=== PATIENT | female | born 1945 | race Caucasian/White ===

== ENCOUNTER 2025-03-23 09:32 | Outpatient (CLI) | payer MEDICARE, MEDICAID, SELFPAY ==
[2025-03-23 10:29] LABS: Anion Gap 10 mmol/L (4-12); Blood Urea Nitrogen 36 mg/dL (7-17); Calcium 9.5 mg/dL (8.4-10.2); Carbon Dioxide 22 mmol/L (22-30); Chloride 104 mmol/L (98-107); Estimated Glomerular Filt Rate 30; Glucose 92 mg/dL (65-110); Magnesium 1.7 mg/dL (1.6-2.3); Sodium 136 mmol/L (137-145)
[2025-03-23 10:38] LABS: Potassium 5.0 mmol/L (3.4-5.0)
[2025-03-23 10:44] LABS: Free T4 Free Thyroxine 1.77 ng/dL (0.78-2.19)
--- OUTSIDE RECORDS SUMMARY | 2025-03-23 11:07 | XMS_ITS | Clinical Summary ---
Author Organization [facility] A Address [address] [place] [address] Care Team Providers Care Instrumental Musician Name Role Phone Gilmer Wise MD Primary Care Provider [phone] Allergies Active Allergy Reactions Criticality Noted Date Comments Dexbrompheniramine-P seudoephed Other (See comments) Low 04/20/2015 Ear problems Atorvastatin Other (See comments) Low 02/21/2022 Dehydration Other Hallucinations Medium 10/03/2017 Pain meds, cause hallucinations and nightmares, does not know name of med Medications aspirin 81 mg chewable tablet Take 1 tablet (81 mg total) by mouth daily Active levothyroxine (SYNTHROID) 75 mcg tablet TAKE ONE TABLET BY MOUTH EVERY DAY. DOES NOT TAKE ON Sundays11/02/19 22 Active losartan (COZAAR) 100 mg tablet Take 1 tablet (100 mg total) by mouth daily 09/26/19 22 Active acetaminophen 500 mg capsule Take 1 capsule (500 mg total) by mouth every 4 (four) hours as needed Active Ventolin HFA 90 mcg/actuation inhaler 08/19/19 23 Active celecoxib (CeleBREX) 100 mg capsule Take 1 capsule (100 mg total) by mouth 2 (two) times a day Active amLODIPine (NORVASC) 10 mg tablet TAKE ONE TABLET BY MOUTH EVERY DAY 90 tablet 3 11/11/19 24 Active fluticasone propion-salmeteroL (ADVAIR HFA) 230-21 mcg/actuation inhalerIndications:M oderate persistent asthma with exacerbation Inhale 2 puffs 2 (two) times a day Rinse mouth with water after use. Do not swallow. 1 each 11/12/19 24 Active tiZANidine (ZANAFLEX) 4 mg tabletIndications:Ac sumanth right-sided low back pain with right-sided sciatica Take 1 tablet (4 mg total) by mouth every 6 (six) hours as needed for muscle spasms Watch for drowsiness 42 tablet 03/03/20 24 Active fenofibrate nanocrystallized (TRICOR) 145 mg tablet Take 1 tablet (145 mg total) by mouth daily 03/17/20 24 Active omeprazole (PriLOSEC) 40 mg capsule Take 1 capsule (40 mg total) by mouth daily Active ergocalciferol (VITAMIN D) 50,000 unit capsule Take 1 capsule (50,000 Units total) by mouth once a week 12 capsule 3 04/21/20 24 025 Active cyanocobalamin (Vitamin B-12) 1,000 mcg tabletIndications:Pr evention of Vitamin B12 Deficiency Take 1 tablet (1,000 mcg total) by mouth daily 90 tablet 1 04/21/20 24 Active gabapentin (NEURONTIN) 100 mg capsule TAKE ONE CAPSULE BY MOUTH THREE TIMES A DAY 270 capsule 07/17/19 25 Active Active Problems Problem Noted Date Diagnosed Date Chronic bilateral low back pain without sciatica 10/06/2024 Assessment & Plan (10/06/2024 9:28 AM CDT): Worsenign sx Recommend PT and pain management eval Medicare annual wellness visit, subsequent 10/06 Assessment & Plan (10/06/2024 9:25 AM CDT): A yearly Medicare Annual Wellness Visit has been performed today. Vivi Walsh is not up to date on screening tests. They are in need of DEXA, Hepatitis B, and Hepatitis C- these have been ordered. Patient is not up to date on needed preventative vaccinations; Is in need of Tdap/Td and Covid-19 (booster). These have been ordered/arranged unless otherwise indicated. Muscle spasms of lower extremity 04/07/2024 Assessment & Plan (10/06/2024 9:16 AM CDT): worsening sx states that prednisone was the only thing that helped has not had any improvement with ortho spinal prednisone injection states that she wants to be on daily prednisone May consider seeing rheum C/w gabapentin 100 mg tid No improvement despite above Would recommend starting daily magnesium Recommend PT, strength training, referral to pain management Need lab work now Assessment & Plan (04/07/2024 2:49 PM PET HOUSE SITTER): worsening sx states that prednisone was the only thing that helped has not had any improvement with ortho spinal prednisone injection states that she wants to be on daily prednisone Recommend srestarting PT Recommend avoiding prednisone daily And will only rx for symptomatic improvement once in a while May consider seeing rheum Start gabapentin 100 mg tid Need lab work now Rheumatoid arthritis involving multiple sites Assessment & Plan (10/06/2024 9:19 AM CDT): States that she has RA throughout her whole body Recommend rheum eval Checking esr/crp/RheumFactor Referral today due to worsening sx Assessment & Plan (04/07/2024 2:55 PM PET HOUSE SITTER): States that she has RA throughout her whole body Recommend rheum eval Checking esr/crp/RheumFactor Stage 3b chronic kidney disease 04/07/2024 Assessment & Plan (10/06/2024 9:20 AM CDT): Chemistry Lab Results Component Value Date SODIUM 141 04/14/2024 POTASSIUM 4.4 04/14/2024 CHLORIDE 105 04/14/2024 CO2 25 04/14/2024 ANIONGAP 11 04/14/2024 BUNSER 26 (H) 04/14/2024 CREATININE 1.63 (H) 04/14/2024 GLUCOSE 92 04/14/2024 CALCIUM 8.9 04/14/2024 BILITOT 0.3 04/14/2024 ALBUMIN 4.3 04/14/2024 GFRNAA 32 (L) 04/14/2024 ALKPHOS 46 04/14/2024 AST 20 04/14/2024 ALT 14 04/14/2024 PHOS 3.3 04/14/2024 MAGNESIUM 1.2 (L) 04/14/2024 Worsening as above Including low calcium Repeat labs now Referral to nephro Assessment & Plan (04/07/2024 2:52 PM PET HOUSE SITTER): Chemistry Lab Results Component Value Date SODIUM 140 10/03/2023 POTASSIUM 3.7 10/03/2023 CHLORIDE 105 10/03/2023 CO2 20 (L) 10/03/2023 ANIONGAP 14 10/03/2023 BUNSER 22 10/03/2023 CREATININE 1.39 (H) 10/03/2023 GLUCOSE 97 10/03/2023 CALCIUM 7.8 (L) 10/03/2023 BILITOT 0.2 10/03/2023 ALBUMIN 4.2 10/03/2023 GFRNAA 39 (L) 10/03/2023 ALKPHOS 56 10/03/2023 AST 18 10/03/2023 ALT 12 10/03/2023 Worsening as above Including low calcium Repeat labs now Referral to nephro Normocytic anemia 04/07/2024 Acquired hypothyroidism 04/07/2024 Assessment & Plan (10/06/2024 9:28 AM CDT): Lab Results Component Value Date TSH 1.10 04/14/2024 Check tsh now Contineu lvt 75 mcg Assessment & Plan (04/07/2024 2:57 PM PET HOUSE SITTER): No results found for: TSH Check tsh now Contineu lvt 75 mcg Vitamin D deficiency 04/07/2024 Class 1 obesity due to exces s calories with serious comorbidity and body mass index (BMI) of 30.0 to 30.9 in adult 04/07/2024 Assessment & Plan (10/06/2024 9:27 AM CDT): Wt Readings from Last 3 Encounters: 10/06/24 76 kg (167 lb 8 oz) 04/07/24 77.6 kg (171 lb) 03/03/24 77.6 kg (171 lb) BMI Readings from Last 3 Encounters: 10/06/24 29.68 kg/m 04/07/24 30.30 kg/m 03/03/24 30.29 kg/m Not at goal of bmi <30 Continue diet and exercise BMI Follow-up includes: nutrition counseling and exercise counseling. Assessment & Plan (04/07/2024 2:57 PM PET HOUSE SITTER): Wt Readings from Last 3 Encounters: 04/07/24 77.6 kg (171 lb) 03/03/24 77.6 kg (171 lb) 11/12/23 77.6 kg (171 lb) BMI Readings from Last 3 Encounters: 04/07/24 30.30 kg/m 03/03/24 30.29 kg/m 11/12/23 30.29 kg/m Not at goal of bmi <30 Continue diet and exercise BMI Follow-up includes: nutrition counseling and exercise counseling. Hypercholesteremia 05/09/2023 Assessment & Plan (10/06/2024 9:27 AM CDT): Lab Results Component Value Date CHOL 162 04/14/2024 Lab Results Component Value Date HDL 57 04/14/2024 Lab Results Component Value Date LDLCALC 92 04/14/2024 Lab Results Component Value Date TRIG 64 04/14/2024 No results found for: POCCHDLR No results found for: POCNONHDL No results found for: POCCHLPL Check labs now Assessment & Plan (04/07/2024 2:52 PM PET HOUSE SITTER): No results found for: CHOL, POCCHOL No results found for: HDL, POCHDL No results found for: LDLCALC, CLDL, HIRISKLDL, LDL, LDLC, LDLDIRECT, LDLMED, LDLP, POCLDL, SCRLDL, SMALLLDLP, TOTLDLC No results found for: TRIG, POCTRIG No results found for: POCCHDLR No results found for: POCNONHDL No results found for: POCCHLPL Check labs now Ataxia 02/21/2022 Coronary artery disease invo lving [place] coronary artery of [place] heart without angina pectoris 01/04/2022 Assessment & Plan (10/06/2024 9:27 AM CDT): Follow up cardio Had hx of DE, with pci stent placement Continue asa and statin Status post insertion of kale g-eluting stent into left anterior descending (LAD) artery 01/04/2022 Status post insertion of kale g-eluting stent into right coronary artery for coronary artery disease 01/04/2022 Old DE (myocardial infarction) 01/04/2022 Immunizations Immunization Administration Dates Next Due Influenza, Unspecified 08/31/2024(Deferr ed: Allergy),04/07/2024(Deferred: Patient Refused) Pneumococcal Conjugate PCV 13 09/27/2015 Pneumococcal Polysaccharide PPV23 11/25/2020 Pneumococcal, Unspecified 06/03/1973 Tetanus Toxoid, Unspecified 06/03/1998 Social History Tobacco Use Types Packs/Day Years Used Date Smoking Tobacco: Never Tobacco Cessation:Counseling Given: Not Answered PHQ-2 Answer Date Recorded PHQ-2 Total Score (If total score is 3 or more points, staff should administer the PHQ-9) 0 10/06/2024 Personal Safety Answer Date Recorded Have you ever been in or are you currently in a harmful physical or emotional relationship or is someone making you feel afraid or unsafe? Denies 10/03/2023 Comments No Sex and Gender Information Value Date Recorded Sex Assigned at Not on file Legal Sex Female 8:57 AM PET HOUSE SITTER Gender Identity Not on file Sexual Orientation Not on file Obstetrics History Last Filed Vital Signs Vital Sign Reading Time Taken Comments Blood Pressure 104/52 10/06/2024 8:51 AM CDT Pulse 72 10/06/2024 8:51 AM CDT Temperature 36.9 C (98.4 F) 03/03/2024 2:11 PM CDT Respiratory Rate 16 10/06/2024 8:51 AM CDT Oxygen Saturation 96% 10/06/2024 8:51 AM CDT Inhaled Oxygen Concentration - - Weight 76 kg (167 lb 8 oz) 10/06/2024 8:51 AM CD T Height 160 cm (5' 2.99) 10/06/2024 8:51 AM CDT Body Mass Index 29.68 10/06/2024 8:51 AM CDT Plan of Treatment Health Maintenance Due Date Last Done Comments DTaP/Tdap/Td Vaccine (1 - Tdap) 02/06/1956 Hepatitis B Screening 1963 Zoster Vaccine (1 of 2) 1995 Osteoporosis Screening-Bone Density Scan 07/12/2018 07/12/2016 Covid-19 Vaccine (3 - season) 2025, 10/11/2020 Influenza Vaccine (#1) 2025 Depression Screening 10/06/2025 10/06/2024, 04/07/20 24 Fall Risk Assessment 10/06/2025 10/06/2024, 04/07/20 24 Well Visit 65+ 10/06/2025 10/06/2024 Pneumococcal vaccine 65+ Completed 021, 09/27/2015, 06/03/1973 Insurance [address] [place] [address] MEDICARE [facility] MEDICARE [employer] Advance Directives For more information, please contact: [phone] Documents on File Type Date Recorded Patient Clinical Systems Educator Expl anation Power of Land Management Supervisor 10/29/2023 12:02 PM Care Teams Instrumental Musician Relationship Specialty Start Date End Date Gilmer Wise MD [address] [place] [address] [place] [id number] PCP - General Family Medicine 04/07/24
[2025-03-23 11:18] LABS: Thyroid Stimulating Hormone 0.028 uIU/mL (0.465-4.680)
== END 2025-03-23 09:33 | disposition home or self-care (01) ==
PROVIDERS: PCP Family Medicine; Visit Provider Nurse Practitioner Family
DX: E03.9 Hypothyroidism, unspecified (principal); I12.9 Hypertensive chronic kidney disease with stage 1 through stage 4 chronic kidney disease, or unspecified chronic kidney disease; N18.9 Chronic kidney disease, unspecified
CPT/HCPCS: 36415; 80048; 83735; 84439; 84443

== ENCOUNTER 2025-05-04 09:34 | Outpatient (CLI) | payer MEDICARE, MEDICAID, SELFPAY ==
--- OUTSIDE RECORDS SUMMARY | 2025-05-04 10:13 | XMS_ITS | Clinical Summary ---
Author Organization [facility] Building A Address [address] [place] [address] Care Team Providers Care Administrative Assistant Name Role Phone Gilmer Wise MD Primary Care Provider [phone] Allergies Active Allergy Reactions Criticality Noted Date Comments Dexbrompheniramine-P seudoephed Other (See comments) Low 04/20/2015 Ear problems Atorvastatin Other (See comments) Low 02/21/2022 Dehydration Other Hallucinations Medium 10/03/2017 Pain meds, cause hallucinations and nightmares, does not know name of med Medications levothyroxine (SYNTHROID) 75 mcg tablet TAKE ONE TABLET BY MOUTH EVERY DAY. DOES NOT TAKE ON Sundays 022 Active losartan (COZAAR) 100 mg tablet Take 1 tablet (100 mg total) by mouth daily 022 Active acetaminophen 500 mg capsule Take 1 capsule (500 mg total) by mouth every 4 (four) hours as needed Active Ventolin HFA 90 mcg/actuation inhaler 023 Active celecoxib (CeleBREX) 100 mg capsule Take 1 capsule (100 mg total) by mouth 2 (two) times a day Active amLODIPine (NORVASC) 10 mg tablet TAKE ONE TABLET BY MOUTH EVERY DAY 90 tablet 3 024 Active fluticasone propion-salmeteroL (ADVAIR HFA) 230-21 mcg/actuation inhalerIndications: Moderate persistent asthma with exacerbation Inhale 2 puffs 2 (two) times a day Rinse mouth with water after use. Do not swallow. 1 each 024 Active tiZANidine (ZANAFLEX) 4 mg tabletIndications:A cute right-sided low back pain with right-sided sciatica Take 1 tablet (4 mg total) by mouth every 6 (six) hours as needed for muscle spasms Watch for drowsiness 42 tablet Active fenofibrate nanocrystallized (TRICOR) 145 mg tablet Take 1 tablet (145 mg total) by mouth daily Active omeprazole (PriLOSEC) 40 mg capsule Take 1 capsule (40 mg total) by mouth daily Active ergocalciferol (VITAMIN D) 50,000 unit capsule Take 1 capsule (50,000 Units total) by mouth once a week 12 capsule 3 Active cyanocobalamin (Vitamin B-12) 1,000 mcg tabletIndications:P revention of Vitamin B12 Deficiency Take 1 tablet (1,000 mcg total) by mouth daily 90 tablet 1 024 Active gabapentin (NEURONTIN) 100 mg capsule TAKE ONE CAPSULE BY MOUTH THREE TIMES A DAY 270 capsule 025 Active aspirin 81 mg enteric coated tablet TAKE 1 TABLET BY MOUTH ONCE DAILY 30 tablet 025 Active aspirin 81 mg chewable tablet Take 1 tablet (81 mg total) by mouth daily 2024 Discontinued Active Problems Problem Noted Date Diagnosed Date [...] now Assessment & Plan (04/07/2024 2:49 PM EDUCATION INTERN): worsening sx states that prednisone was the [...] sx Assessment & Plan (04/07/2024 2:55 PM EDUCATION INTERN): States that she has RA throughout her [...] nephro Assessment & Plan (04/07/2024 2:52 PM EDUCATION INTERN): Chemistry Lab Results Component Value Date SODIUM [...] mcg Assessment & Plan (04/07/2024 2:57 PM EDUCATION INTERN): No results found for: TSH Check tsh [...] counseling. Assessment & Plan (04/07/2024 2:57 PM EDUCATION INTERN): Wt Readings from Last 3 Encounters: 04/07/24 [...] now Assessment & Plan (04/07/2024 2:52 PM EDUCATION INTERN): No results found for: CHOL, POCCHOL No results found for: HDL, POCHDL No results found for: LDLCALC, CLDL, HIRISKLDL, LDL, LDLC, LDLDIRECT, LDLMED, LDLP, POCLDL, SCRLDL, SMALLLDLP, TOTLDLC No results found for: TRIG, POCTRIG No results found for: POCCHDLR No results found for: POCNONHDL No results found for: POCCHLPL Check labs now Ataxia 02/21/2022 Coronary artery disease invo lving [place] coronary artery of [place] heart without angina pectoris 01/04/2022 Assessment & Plan (10/06/2024 9:27 AM CDT): Follow up cardio Had hx of PR, with pci stent placement Continue asa and statin Status post insertion of kale g-eluting stent into left anterior descending (LAD) artery 01/04/2022 Status post insertion of kale g-eluting stent into right coronary artery for coronary artery disease 01/04/2022 Old PR (myocardial infarction) 01/04/2022 Encounters Date Type Department Care Team Description 03/30/2025 Telephone [facility] Primary Care at [address] [address] Gilmer Wise MD Med Refill from Last 3 Months Immunizations Immunization Administration Dates Next Due Influenza, [...] on file Legal Sex Female 8:57 AM EDUCATION INTERN Gender Identity Not on file Sexual Orientation Not on file Last Filed Vital Signs Vital Sign Reading [...] Screening-Bone Density Scan 07/12/2018 07/12/2016 Covid-19 Vaccine ( season) 2025, 10/11/2020 Influenza Vaccine (#1) 2025 Depression Screening 10/06/2025 10/06/2024, 04/07/20 24 Fall Risk Assessment 10/06/2025 10/06/2024, 04/07/20 24 Well Visit 65+ 10/06/2025 10/06/2024 Pneumococcal vaccine 65+ Completed 021, 09/27/2015, 06/03/1973 [address] [place] [address] MEDICARE [facility] MEDICARE [facility] Address: [address] [address] [place] [address] [employer] Advance Directives For more information, please contact: [phone] Documents on File Type Date Recorded Patient Assistant Store Manager Trainee Expl anation Power of Abrasive Grader Helper 10/29/2023 12:02 PM Care Teams Administrative Assistant Relationship Specialty Start Date End Date Gilmer Wise MD [address] [place] [address] PCP - General Family Medicine 04/07/24
[2025-05-04 11:24] LABS: Anion Gap 7 mmol/L (4-12); Blood Urea Nitrogen 28 mg/dL (7-17); Calcium 9.7 mg/dL (8.4-10.2); Carbon Dioxide 25 mmol/L (22-30); Chloride 108 mmol/L (98-107); Estimated Glomerular Filt Rate 34; Glucose 77 mg/dL (65-110); Potassium 4.1 mmol/L (3.4-5.0); Sodium 140 mmol/L (137-145)
[2025-05-04 11:41] LABS: Free T4 Free Thyroxine 1.27 ng/dL (0.78-2.19)
[2025-05-04 11:56] LABS: Thyroid Stimulating Hormone 0.128 uIU/mL (0.465-4.680)
== END 2025-05-04 09:35 | disposition home or self-care (01) ==
LOC: ANHLAB 09:36
PROVIDERS: PCP Family Medicine; Visit Provider Nurse Practitioner Family
DX: E03.9 Hypothyroidism, unspecified (principal); E87.1 Hypo-osmolality and hyponatremia; N18.9 Chronic kidney disease, unspecified
CPT/HCPCS: 36415; 80048; 84439; 84443